=== PATIENT | male | born 1960 | race Caucasian/White ===

== ENCOUNTER → 2016-10-01 | Outpatient (CLI) | payer BC ==
[~2016-10-01] MED LIST: ASPI-482 PO; CRESTOR10 MG PO; OLME20TA PO; REGADENOSON 0.4 MG/5 ML DISP.SYRIN. IV ONE
--- NOTE | 2016-10-01 11:24 | CARD ---
APPROVED REPORT EXAM: Two-dimensional and M-mode echocardiogram with Doppler and color Doppler. Other Information Quality : Average Rhythm : NSR INDICATION Cardiac Disease: CAD RISK FACTORS Hypertension 2D DIMENSIONS RVDd2.6 (2.9-3.5cm)Left Atrium(2D)4.2 (1.6-4.0cm) IVSd1.0 (0.7-1.1cm)Aortic Root(2D)2.8 (2.0-3.7cm) LVDd5.4 (3.9-5.9cm)LVOT Diameter2.3 (1.8-2.4cm) PWd1.0 (0.7-1.1cm)LVDs3.2 (2.5-4.0cm) FS (%) 40.1 %SV98.6 ml LVEF(%)70.3 (>50%) Aortic Valve AoV Peak Arnold.110.8cm/sAoV VTI25.1cm AO Peak GR.4.9mmHgLVOT Peak Arnold.87.2cm/s AO Mean GR.3mmHgAVA (VMAX)3.33cm2 Mitral Valve MV E Plkubxjz71.0cm/sMV E Peak Gr.3mmHg MV DECEL [id number] A Jatotvbd75.3cm/s MV E Mean Gr.1mmHgMV PFW50st E/A Ratio0.8MV A Jnwwbuej887dp MVA (PHT)3.28cm2 Tricuspid Valve TR P. Okwrthgc910jv/sRAP WMXNLMSB7gnMz TR Peak Gr.64xeFxWSDM52hfGl Pulmonary Vein S1 Ipjhthtr40.8cm/sD2 Emfswqwm19.8cm/s LEFT VENTRICLE The left ventricle is normal size. There is normal left ventricular wall thickness. Left ventricle sy stolic function is normal. The Ejection Fraction is 65-70%. There is normal LV segmental wall motion. Tissue Doppler imaging reveals mild left ventricular diastolic dysfunction. Transmitral Doppler flow pattern is Grade I-abnormal relaxation pattern. RIGHT VENTRICLE The right ventricle is normal size. The right ventricular systolic function is normal. ATRIA The left atrium is borderline dilated. The right atrium size is normal. The interatrial septum is int act with no evidence for an atrial septal defect or patent foramen ovale as noted on 2-D or Doppler i david. AORTIC VALVE The aortic valve is normal in structure and function. The aortic valve is trileaflet. Doppler and Col or Flow revealed no significant aortic regurgitation. There is no significant aortic valvular stenosi s. MITRAL VALVE The mitral valve is normal in structure and function. There is no mitral valve stenosis. Doppler and Color Flow revealed no mitral valve regurgitation noted. TRICUSPID VALVE The tricuspid valve is normal in structure and function. Doppler and Color Flow revealed trace tricus pid regurgitation. The PA pressure was estimated at 18 mmHg. There is no tricuspid valve stenosis. PULMONIC VALVE The pulmonic valve is not well visualized. Doppler and Color Flow revealed no pulmonic valvular regur gitation. There is no pulmonic valvular stenosis. GREAT VESSELS The aortic root is normal in size. Normal pulmonary venous flow (Doppler). The IVC was not visualized . PERICARDIAL EFFUSION There is no evidence of significant pericardial effusion. Critical Notification Critical Value: No <Conclusion> Left ventricle systolic function is normal. The Ejection Fraction is 65-70%.
--- NOTE | 2016-10-01 13:52 | RAD ---
APPROVED REPORT Test Type: Pharmacological Stress Nurse/Tech: Margaux Chris R.N. Test Indications: CAD Cardiac History: 9 Coronary Stents, HTN Medications: SEE EMR Medical History: SEE EMR Resting ECG: SB Resting Heart Rate: 57 bpm Resting Blood Pressure: 152/91mmHg Pretest Chest Pain: None Nurse/Tech Notes S1S2, lungs CTA, denied chest pain or SOA. Consent: The procedure was explained to the patient in lay terms. Informed consent was witnessed. Robin eout was entered into [employer]. History and Stress Test performed by Margaux Chris R.N. Pharm. Details Pharmacologic stress testing was performed using 0.4mg per 5ml of regadenoson given intravenously ove r 7-10 seconds. Stress Symptoms Slightly SOA. Stomach upset. POST EXERCISE Reason for Termination: Infusion complete Max HR: 87 bpm Max Blood Pressure: 161/92mmHg Blood Pressure response to exercise: Normal blood pressure response during stress. Heart Rate response to exercise: Normal Chest Pain: No. Arrhythmia: No. ST Change: No. INTERPRETATION Stress EKG Conclusion: The resting EKG shows a normal sinus rhythm with mild nonspecific ST segment c hanges. The stress EKG shows no significant changes from baseline. No EKG evidence of stress-induced ischemia. Imaging Protocol IMAGE PROTOCOL: Rest Tc-99m/stress Tc-99m 1 day Rest: Stress: Viability: Radiopharm.Tc99m MllzluuoyJm56d Sestamibi Dose12.4mCi 35.7mCi Duration 15min. 10min. Img Date 10/01/2016 10/01/2016 Inj-Img Toqp36nzc. 60min. Rest Admin Site:IV - Left HandAdministrator:MARRY Gallagher Stress Admin Site: IV - Left HandAdministrator: JESSICA Pope, ARRT (R)(N) STRESS DATA End Diast. Vol.158.0mlAv. Heart Rate59.0bpm End Syst. Vol.49.0mlCO Index BSA0.0L/min Myocardial Ojmd351.0gEject. Fxhkstxw60.0% Stress Rates Pk. Fill Rate2.12EDV/secLVtime Pk. Fill 143.51msec Pk. Empty Rate3.14ESV/secLVtime Pk. Bgohs703.26msec 1/3 Pk. Fill1.46EDV/sec Stress Scores Regional WT0.00Summed WT1.00 Regional WM0.00Summed WM0.00 LV Perfusion The stress scans showed no significant defects. The rest scans showed no significant defects. Nuclear imaging shows no reversible ischemia or infarct. Wall Motion Normal left ventricular systolic function with an ejection fraction of 69%. LV Perf. Quant 17 Seg. SSS0.00 17 Seg. SRS0.00 17 Seg. SDS0.00 Stress Defect Extent (% LAD)0.00Rest Defect Extent (% LAD)0.00Rev. Defect Extent (% LAD)0.00 Stress Defect Extent (% LCX) 0.00Rest Defect Extent (% LCX)0.00Rev. Defect Extent (% LCX)0.00 Stress Defect Extent (% RCA)0.00Rest Defect Extent (% RCA)0.00Rev. Defect Extent (% RCA)0.00 Stress Defect Extent (% CÉSAR)0.00Rest Defect Extent (% CÉSAR)0.00Rev. Defect Extent (% CÉSAR)0.00 Conclusion 1. No EKG evidence of stress-induced ischemia. 2. Nuclear imaging shows no reversible ischemia or infarct. 3. Normal left ventricular systolic function with an ejection fraction of 69%. 4. Low risk Lexiscan nuclear stress test.
== END | disposition home or self-care (01) ==
LOC: ECHO 08:23
PROVIDERS: ATTEND Internal Medicine Cardiovascular Disease
DX: I25.10 Atherosclerotic heart disease of native coronary artery without angina pectoris (principal); I07.1 Rheumatic tricuspid insufficiency
CPT/HCPCS: 78452; 93017; 93306; 96374; 96375; 96376; A9500; J2785

== ENCOUNTER → 2020-01-03 | Outpatient (CLI) | payer BC ==
[~2020-01-03] MED LIST changes: -OLME20TA PO; +OLME20TA17 PO; -REGADENOSON 0.4 MG/5 ML DISP.SYRIN. IV ONE
--- NOTE | 2020-01-03 09:37 | CARD ---
MR#: [id number] Date of Study: 01/03/2020 Ordering Physician: JES STEINER, Referring Physician: JES STEINER, Tech: Gris Tinajero [facility] APPROVED REPORT EXAM: Two-dimensional and M-mode echocardiogram with Doppler and color Doppler. Other Information Quality : Good INDICATION Atherosclerotic Heart Disease 2D DIMENSIONS RVDd3.6 (2.9-3.5cm)Left Atrium(2D)4.0 (1.6-4.0cm) IVSd1.3 (0.7-1.1cm)Aortic Root(2D)3.1 (2.0-3.7cm) LVDd4.6 (3.9-5.9cm)LVOT Diameter2.4 (1.8-2.4cm) PWd1.1 (0.7-1.1cm)LVDs3.1 (2.5-4.0cm) FS (%) 34.3 %SV62.9 ml LVEF(%)60.0 (>50%) Aortic Valve AoV Peak Arnold.115.4cm/sAoV VTI23.6cm AO Peak GR.5.3mmHgLVOT Peak Arnold.109.0cm/s AO Mean GR.3mmHgAVA (VMAX)4.45cm2 EUSEBIO (VTI)4.90cm2 Mitral Valve MV E Ahvamsac79.1cm/sMV DECEL TECX063ux MV A Eklowfhp89.6cm/sE/A Ratio0.8 Tricuspid Valve TR P. Iussanjk001kl/sRAP BYQNRKWN8ttKw TR Peak Gr.74akXlVAKZ74uuQb Pulmonary Vein S1 Mxoyamgx82.1cm/sD2 Fcogpvtx54.5cm/s LEFT VENTRICLE The left ventricle is normal size. There is mild concentric left ventricular hypertrophy. The left ve ntricular systolic function is normal. The Ejection Fraction is 55-60%. There is normal LV segmental wall motion. Transmitral Doppler flow pattern is Grade I-abnormal relaxation pattern. RIGHT VENTRICLE The right ventricle is normal size. The right ventricular systolic function is normal. ATRIA The left atrium is mildly dilated. The right atrium size is normal. The interatrial septum is intact with no evidence for an atrial septal defect or patent foramen ovale as noted on 2-D or Doppler imagi ng. AORTIC VALVE The aortic valve is calcified but opens well. Doppler and Color Flow revealed no significant aortic r egurgitation. There is no significant aortic valvular stenosis. MITRAL VALVE The mitral valve is normal in structure and function. There is no evidence of mitral valve prolapse. There is no mitral valve stenosis. Doppler and Color Flow revealed no mitral valve regurgitation note d. TRICUSPID VALVE The tricuspid valve is normal in structure and function. Doppler and Color Flow revealed no tricuspid valve regurgitation noted. There is no tricuspid valve stenosis. PULMONIC VALVE The pulmonic valve is not well visualized. Doppler and Color Flow revealed mild pulmonic valvular reg urgitation. There is no pulmonic valvular stenosis. GREAT VESSELS The aortic root is normal in size. The ascending aorta is normal in size. The IVC is normal in size a nd collapses >50% with inspiration. PERICARDIAL EFFUSION There is no evidence of significant pericardial effusion. Critical Notification Critical Value: No <Conclusion> The left ventricular systolic function is normal. The Ejection Fraction is 55-60%. There is normal LV segmental wall motion. Transmitral Doppler flow pattern is Grade I-abnormal relaxation pattern. There is no evidence of significant pericardial effusion. Signed by : Humberto Gonzales, Electronically Approved : 01/03/2020 09:37:33
== END | disposition home or self-care (01) ==
LOC: ECHO 08:48
PROVIDERS: ATTEND Internal Medicine Cardiovascular Disease
DX: I08.8 Other rheumatic multiple valve diseases (principal); I25.10 Atherosclerotic heart disease of native coronary artery without angina pectoris
CPT/HCPCS: 93306

== ENCOUNTER 2021-12-13 07:03 | Outpatient (CLI) | payer BC ==
[~2021-12-13] VITALS: Ht 182.9 cm; Wt 129.5 kg
[2021-12-13] VITALS (11 sets, daily range): BP systolic 138–195; BP diastolic 81–108
[2021-12-13 07:33] LABS: HEMATOCRIT 47.7 % (39.0-53.0); HEMOGLOBIN 16.7 g/dL (13.0-17.5); RED CELL DISTRIBUTION WIDTH 13.6 % (11.5-14.5); WHITE BLOOD COUNT 4.8 x10^3/uL (4.0-11.0)
[2021-12-13 07:42] LABS: PROTHROMBIN TIME PATIENT 13.3 SEC (11.7-14.0)
[2021-12-13] MEDS ORDERED: IODIXANOL 320 MG/ML 100 ML VIAL. ONE (07:42)
[2021-12-13] MEDS ORDERED: LIDOCAINE 1% PF 2 ML VIAL. ONE (07:42)
[2021-12-13 07:45] LABS: CALCIUM 8.9 mg/dL (8.5-10.1); CREATININE 1.1 mg/dL (0.7-1.3); GFR 68.5; POTASSIUM 3.8 mmol/L (3.5-5.1)
[2021-12-13] MEDS ORDERED: OLME1TAB25 PO (08:02)
[2021-12-13] MEDS ORDERED: GLUC100018 PO (08:02)
[2021-12-13] MEDS ORDERED: OMEG100021 PO (08:02)
[2021-12-13] MEDS ORDERED: ASCO100T4 PO (08:02)
[2021-12-13] MEDS ORDERED: ZINC50TA39 PO (08:02)
[2021-12-13] MEDS ORDERED: SAW160CA3 PO (08:02)
[2021-12-13] MEDS ORDERED: MULT-245 PO (08:02)
[2021-12-13] MEDS ORDERED: UBID100T5 PO (08:02)
[2021-12-13] MEDS ORDERED: fentaNYL PF VIAL 100 MCG/2 ML VIAL ONE (08:08)
[2021-12-13] MEDS ORDERED: NITROGLYCERIN 200 MCG/2 ML SYRINGE FOR CATH/VASC LAB. ONE (08:09)
[2021-12-13] MEDS ORDERED: MIDAZOLAM HCL/PF 5 MG/5 ML VIAL. ONE (08:09)
[2021-12-13] MEDS ORDERED: VERAPAMIL 5 MG/2 ML VIAL. ONE (08:09)
[2021-12-13] MEDS ORDERED: HEPARIN for IV BOLUS 10,000 UNIT/10 ML VIAL. ONE (08:09)
[2021-12-13] MEDS ORDERED: VERAPAMIL 5 MG/2 ML VIAL. IART ONE (08:30)
[2021-12-13] MEDS ORDERED: NITROGLYCERIN 200 MCG/2 ML SYRINGE FOR CATH/VASC LAB. IART ONE (08:30)
[2021-12-13] MEDS ORDERED: IODIXANOL 320 MG/ML 100 ML VIAL. IART ONE (08:30)
[2021-12-13] MEDS ORDERED: HEPARIN for IV BOLUS 10,000 UNIT/10 ML VIAL. IART ONE (08:30)
[2021-12-13] MEDS ORDERED: fentaNYL PF VIAL 100 MCG/2 ML VIAL IV ONE (08:30)
[2021-12-13] MEDS ORDERED: MIDAZOLAM HCL/PF 5 MG/5 ML VIAL. IV ONE (08:30)
[2021-12-13] MEDS ORDERED: LIDOCAINE 1% PF 2 ML VIAL. INJ ONE (08:30)
[2021-12-13] MEDS ORDERED: BIVALIRUDIN 250 MG VIAL. IVP ONE (08:58)
[2021-12-13] MEDS ORDERED: ADENOSINE 90 MG/30 ML VIAL. IV ONE (09:08)
[2021-12-13] MEDS ORDERED: ADENOSINE 90 MG in IV NORMAL SALINE 50ML 90 ML IV ONE (09:30)
[2021-12-13] MEDS ORDERED: HEPARIN for IV BOLUS 10,000 UNIT/10 ML VIAL. IV ONE (09:30)
[2021-12-13] MEDS ORDERED: ASPIRIN 325 MG TABLET ONE (09:45)
[2021-12-13] MEDS ORDERED: PRASUGREL 10 MG TABLET. ONE (09:45)
[2021-12-13] MEDS ORDERED: PRASUGREL 10 MG TABLET. PO ONE (09:45)
[2021-12-13] MEDS ORDERED: ASPIRIN 325 MG TABLET PO ONE (09:45)
--- NOTE | 2021-12-13 09:47 | PDOC ---
MODERATE SEDATION ASSESSMENT RISKS/ALTERNATIVES Risks/Alternatives Risks and alternatives of this type of sedation and procedure discussed with: RISK/ALTERNATIVES: Patient H & P ON CHART H & P H & P on chart and reviewed for co-morbid conditions and appropriate labs. H&P ON CHART: Yes STATUS PREG STATUS ASSESSED: N/A MEDS/ALLERGIES REVIEWED Meds/Allergies Reviewed Medications and Allergies including time and route of recently administered narcotics and sedatives. MEDS/ALLERGIES REVIEWED: Yes ASA RATING ASA RATING: II AIRWAY ASSESSMENT Airway Assessment Airway patency, oral function limitations, presence of caps, crowns, dentures, partials, and ability to extend neck assessed. AIRWAY ASSESSMENT: Yes MALLAMPATI SCORE MALLAMPATI SCORE: II PRE-SEDATION ASSESSMENT PRE-SEDATION ASSESSMENT: Yes DESI ANDERSON MD December 13, 2021 09:47
[2021-12-13] MEDS ORDERED: ACETAMINOPHEN 325 MG TABLET. PO PRN (10:00)
[2021-12-13] MEDS ORDERED: IV 1/2 NORMAL SALINE 1,000 ML IV SCH (10:00)
[2021-12-13] MEDS ORDERED: NITROGLYCERIN SUBLINGUAL 0.4 MG BOTTLE OF 25. SL PRN (10:00)
--- NOTE | 2021-12-13 10:08 | CARD ---
MR#: [id number] Date of Study: 12/13/2021 Ordering Physician: DESI ANDERSON, Referring Physician: DESI ANDERSON Tech: Maricarmen Tinajero APPROVED REPORT Technologist: Maricarmen Tinajero Nurse: Nely Beard RN Procedure(s) performed: 1. Left heart catheterization and selective coronary angiography via right t ransradial approach 2. Instantaneous wave free ratio (IFR) and fractional flow reserve (FFR) measurement to left anterio r descending artery stenosis fl time: 8.9 min dose: 90 gycm2 contrast: 102 ml moderate sedation: 65 MINS INDICATION The indication(s) include : Coronary artery disease, positive stress test. [facility] Clinical Frailty Scale [facility] Clinical Frailty Scale: Managing Well Heart Failure Heart Failure: No CASE TECHNIQUE IV conscious sedation was used throughout procedure with appropriate monitoring and was performed in the presence of a registered nurse who was an independent trained observer other than the physician p erforming the procedure. During this case, Fluoroscopy and low osmolar contrast were used for imaging . Specimen(s) Removed: No Estimated Blood loss: 15 cc's. PROCEDURE NARRATIVE After explaining the risks, benefits and alternative options, informed consent was obtained from keri ent. Patient was brought to the cardiac Anaesthesiologist and right wrist was prepped and draped in the usual fashion after confirming a positive modified Merlin's test. Arterial access was obtained in the rig t radial artery and a 6 Martiniquais sheath was inserted. 6 Martiniquais Norman catheter was used to perform harjinder ective angiography of the left and right coronary arteries. LVEDP and transaortic gradients were radha sured. Since patient was noted to have angiographically borderline significant stenosis involving th e left anterior descending artery, a decision was made to assess physiologic significance using insta ntaneous wave free (IFR) ratio measurement. The left main coronary artery was engaged with a 6 FreTapFame h XB 3.5 guide catheter and the stenosis in the midsegment of the left anterior descending artery was crossed with Denny Omniwire pressure guidewire. iFR measurement came back borderline significant at 0.90. Hence we decided to evaluate this further with fractional flow reserve (FFR) measurement. Patient was given intravenous adenosine infusion per protocol and FFR was measured. This came back significant at 0.77. FINDINGS 1. Hemodynamics: Left ventricular end-diastolic pressure of 8 mmHg. No pullback gradient across the aortic valve. 2. Coronary angiography: a. The left main coronary artery arose from the left sinus of Valsalva, gave rise to the left anteri or descending and left circumflex arteries and did not show any significant stenosis. b. The left anterior descending artery showed patent stent in the proximal to mid segment. The firs t diagonal branch which was a small to medium caliber vessel and was jailed by this stent showed 90% proximal segment stenosis. Distal to the stent, the LAD showed two tandem 70% stenosis. This was ph ysiologically significant based on FFR measurement of 0.77. c. The left circumflex artery did not show any significant stenosis. d. The right coronary artery was a large and dominant vessel arising from the right sinus of Valsalv a that showed 30% in-stent restenosis in the midsegment. The posterolateral branch showed 90% stenos is in the midsegment. INTERVENTION The left main coronary artery was engaged with 6 Martiniquais XB 3.5 guide catheter and the tandem lesions in the mid segment of the LAD were crossed with the pressure wire for FFR measurement as stated above . The intervention was performed over the pressure wire. The lesions were predilated with 2.5 x 15 mm Euphora balloon followed by 2.75 x 20 mm NC Euphora noncompliant balloon. The lesions were then t reated with a 2.75 x 26 mm resolute [place] drug-eluting stent. Follow-up angiography showed resolution of the stenosis to 0% with ANUSHKA-3 distal flow. Patient tolerated the procedure well. Hemostasis wa s achieved using TR band. There were no immediate complications. ANUSHKA Flow ANUSHKA Flow (Pre-Intervention): ANUSHKA-2 ANUSHKA Flow (Post-Intervention): ANUSHKA-3 Conclusion 1. Patent previously placed stents in the LAD and RCA. There was 70% stenosis noted in the midsegme nt of the left anterior descending artery, proven physiologically significant based on FFR measuremen t of 0.77. 2. Successful PCI/drug-eluting stent placement to the left anterior descending artery. Recommendations 1. Aspirin 325 mg daily for 1 month followed by 81 mg daily 2. Prasugrel 10 mg daily 3. Cardiovascular risk factor modification Signed by : Desi Anderson, Electronically Approved : 12/13/2021 10:07:51
[2021-12-13] MEDS ORDERED: PRAS10TA9 PO (11:06)
[2021-12-13] MEDS ORDERED: ASPI325T8 PO (11:06)
--- NOTE | 2021-12-13 11:17 | NUR ---
Effient 10 mg PO and Aspirin 325 mg PO called in to patients preferred pharmacy
--- NOTE | 2021-12-13 13:32 | NUR ---
SBP elevated. Pt resumed home medications. will continue to monitor
--- NOTE | 2021-12-13 13:35 | NUR ---
TR band dc'd. Armboard reapplied. Discharge instructions reviewed with patient and family. Pt ambulated and tolerated PO.
[2021-12-14] MEDS ORDERED: ASPIRIN ENTERIC COATED 325 MG TABLET.DR. PO SCH (08:00)
[2021-12-14] MEDS ORDERED: PRASUGREL 10 MG TABLET. PO SCH (08:00)
== END 2021-12-13 13:57 | disposition home or self-care (01) ==
LOC: CCL 07:03
PROVIDERS: ATTEND Internal Medicine Cardiovascular Disease
DX: I25.10 Atherosclerotic heart disease of native coronary artery without angina pectoris (principal); R94.39 Abnormal result of other cardiovascular function study; I10 Essential (primary) hypertension; E78.00 Pure hypercholesterolemia, unspecified; Z79.82 Long term (current) use of aspirin; Z79.899 Other long term (current) drug therapy; Z98.890 Other specified postprocedural states; Z88.2 Allergy status to sulfonamides
CPT/HCPCS: 36415; 80048; 85027; 85610; 92928; 93458; 93571; 99152; 99153; C1725; C1769; C1874; C1894; C9600; J0153; J1644; J2250; J3010; J3490; Q9967